=== PATIENT | male | born 1960 | race Caucasian/White ===

== ENCOUNTER 2018-03-10 18:04 | Emergency (ER) | payer BC, OTHER ==
[~2018-03-10] VITALS: Ht 177.8 cm; Wt 74.8 kg
--- NOTE | 2018-03-10 20:42 | ED Integumentary General ---
General Chief Complaint: Skin/Wound Problems Stated Complaint: ABSCESS Nursing Triage Note: PATIENT HERE FOR ABSCESS TO LEFT FLANK X2-3 WEEKS. HAS BEEN ON BACTRIM. Source: patient Exam Limitations: no limitations History of Present Illness Date Seen by Provider: Mar 10, 2018 Time Seen by Provider: 20:41 Initial Comments To ER with an abscess to the left flank about 2 weeks duration. He is currently on Bactrim. His has been attempting to drain this by squeezing it at home. He was seen at [facility] and referred to the emergency room. He denies fevers or chills. He does report a poor appetite however. No other systemic symptoms. Timing/Duration: constant, getting worse Severity: moderate Allergies and Home Medications Allergies Coded Allergies: No Known Drug Allergies (Unverified , 03/10/18) Home Medications Hydrocodone/Acetaminophen 1 Each Tablet, 1 EACH PO Q4H PRN for PAIN-MODERATE TO SEVERE Prescribed by: LUDA NARANJO on 03/10/182108 Sulfamethoxazole/Trimethoprim 1 Each Tablet, 1 EACH PO BID Prescribed by: LUDA NARANJO on 03/10/182108 Patient Home Medication List Home Medication List Reviewed: Yes Constitutional: see HPI; No chills, No fever, No malaise, No weakness EENTM: see HPI Respiratory: no symptoms reported Cardiovascular: no symptoms reported Genitourinary: no symptoms reported Musculoskeletal: no symptoms reported Skin: no symptoms reported Psychiatric/Neurological: No Symptoms Reported Past Dussybe-[id number]-[id number] Hx Patient Social History Recent Foreign Travel: No Contact w/Someone Who Travel: No Recent Infectious Disease Expo: No Physical Exam Vital Signs Vital Signs - First Documented 03/10/18 20:30 Temp 97.8 Pulse 101 Resp 20 B/P (MAP) 129/85 (100) Pulse Ox 99 O2 Delivery Room Air Capillary Refill : Less Than 3 Seconds General Appearance: WD/WN, no apparent distress HEENT: PERRL/EOMI, normal ENT inspection Neck: non-tender, full range of motion Respiratory: no respiratory distress, no accessory muscle use Neurologic/Psychiatric: alert, normal mood/affect Skin: normal color, warm/dry Skin Problem Character: abscess, other (large (15x7cm) well demarcated fluctuant abscess with multiple small pustules in the center on the left flank) Procedures/Interventions I&D : Blade Size: 11 Packing/Drain: 1/4 Pe[place] Drain Progress 2 mL of 1% lidocaine without epinephrine. Wound then incised with an 11 blade scalpel. A 1 cm incision was made. A tremendous amount of purulent material was expressed. Culture of this was collected and sent to lab. Cavity was irrigated with a total of 300 mL of Betadine/saline solution. Quarter-inch Peoa drain was sutured into place using one single simple interrupted suture size 3-0 Prolene. \ Progress/Results/Core Measures Results/Orders Lab Results Laboratory Tests Test 03/10/18 20:40 Range/Units White Blood Count 15.2 H 4.3-11.0 10^3/uL Red Blood Count 4.73 4.35-5.85 10^6/uL Hemoglobin 14.1 13.3-17.7 G/DL Hematocrit 42 40-54 % Mean Corpuscular Volume 88 80-99 FL Mean Corpuscular Hemoglobin 30 25-34 PG Mean Corpuscular Hemoglobin Concent 34 32-36 G/DL Red Cell Distribution Width 12.5 10.0-14.5 % Platelet Count 476 H 130-400 10^3/uL Mean Platelet Volume 10.1 7.4-10.4 FL Neutrophils (%) (Auto) 61 42-75 % Lymphocytes (%) (Auto) 23 12-44 % Monocytes (%) (Auto) 14 H 0-12 % Eosinophils (%) (Auto) 1 0-10 % Basophils (%) (Auto) 1 0-10 % Neutrophils # (Auto) 9.3 H 1.8-7.8 X 10^3 Lymphocytes # (Auto) 3.4 1.0-4.0 X 10^3 Monocytes # (Auto) 2.1 H 0.0-1.0 X 10^3 Eosinophils # (Auto) 0.2 0.0-0.3 10^3/uL Basophils # (Auto) 0.2 H 0.0-0.1 10^3/uL Neutrophils % (Manual) 56 % Lymphocytes % (Manual) 19 % Monocytes % (Manual) 15 % Eosinophils % (Manual) 2 % Basophils % (Manual) 0 % Metamyelocytes % 1 % Band Neutrophils 5 % Reactive Lymphocytes 2 % Blood Morphology Comment NORMAL Sodium Level 132 L 135-145 MMOL/L Potassium Level 4.6 3.6-5.0 MMOL/L Chloride Level 94 L 98-107 MMOL/L Carbon Dioxide Level 21 21-32 MMOL/L Anion Gap 17 H 5-14 MMOL/L Blood Urea Nitrogen 12 7-18 MG/DL Creatinine 0.87 0.60-1.30 MG/DL Estimat Glomerular Filtration Rate > 60 BUN/Creatinine Ratio 14 Glucose Level 323 H 70-105 MG/DL Calcium Level 9.8 8.5-10.1 MG/DL My Orders Orders - LUDA NARANJO DEBURRER Cbc With Automated Diff (03/10/18 20:34) Basic Metabolic Panel (03/10/18 20:34) Lidocaine 1% Inj 20 Ml (Xylocaine 1% Inj (03/10/18 20:45) Wound Culture (03/10/18 20:34) Manual Differential (03/10/18 20:40) Medications Given in ED Current Medications Medications Dose Ordered Sig/Td Route Start Time Stop Time Status Last Admin Dose Admin Lidocaine HCl 3 ml ONCE ONCE INJ 03/10/18 20:45 03/10/18 20:46 DC 03/10/18 20:46 3 ML Vital Signs/I&O 03/10/18 20:30 Temp 97.8 Pulse 101 Resp 20 B/P (MAP) 129/85 (100) Pulse Ox 99 O2 Delivery Room Air Blood Pressure Mean: 100 Departure Communication (Admissions) 5252-he only has one and a half days of Bactrim. We'll continue the Bactrim and I'll give him a prescription for more. Also some pain medications and I plan to see him back here in the emergency room in 48 hours for recheck since he does not have a primary care provider Impression Primary Impression: Abscess Disposition: 01 HOME, SELF-CARE Condition: Improved Departure-Patient Inst. Decision time for Depature: 21:08 Referrals: NO,LOCAL PHYSICIAN (PCP/Family) Primary Care Physician Patient Instructions: Abscess Incision and Drainage (DC) Add. Discharge Instructions: 1. Change the dressing as often as needed. You may shower. Leave the drain in place. Return to the emergency room on Saturday for recheck. Take antibiotics as directed. Pain medication as needed. Return to ER before Saturday for any fevers worsening redness or worsening pain. Expect quite a bit of drainage over the next few days. Additionally, your blood sugar is elevated indicating that you are likely diabetic. Follow-up with primary care All discharge instructions reviewed with patient and/or family. Voiced understanding. Scripts Hydrocodone/Acetaminophen ([place] 5-325 Tablet) 1 Each Tablet 1 EACH PO Q4H PRN for PAIN-MODERATE TO SEVERE, #10 TAB Prov: LUDA NARANJO APRN 03/10/18 Sulfamethoxazole/Trimethoprim (Bactrim Ds Tablet) 1 Each Tablet 1 EACH PO BID, #14 TAB Prov: LUDA NARANJO APRN 03/10/18 Work/School Note: Work Release Form Date Seen in the Emergency Department: Mar 10, 2018 Return to Work: Mar 12, 2018 LUDA NARANJO APRN Mar 10, 2018 20:42
[2018-03-10] MEDS ORDERED: LIDOCAINE 1% INJ 20 ML 20 ML VIAL INJ ONE (20:45)
[2018-03-10 20:50] LABS: BASOPHILS # (AUTO) 0.2 10^3/uL (0.0-0.1); BASOPHILS % (AUTO) 1 % (0-10); EOSINOPHILS # (AUTO) 0.2 10^3/uL (0.0-0.3); EOSINOPHILS % (AUTO) 1 % (0-10); HEMATOCRIT 42 % (40-54); HEMOGLOBIN 14.1 G/DL (13.3-17.7); LYMPHOCYTES # (AUTO) 3.4 X 10^3 (1.0-4.0); LYMPHOCYTES % (AUTO) 23 % (12-44); MEAN CORPUSCULAR HEMOGLOBIN 30 PG (25-34); MEAN CORPUSCULAR HGB CONC 34 G/DL (32-36); MEAN CORPUSCULAR VOLUME 88 FL (80-99); MEAN PLATELET VOLUME 10.1 FL (7.4-10.4); MONOCYTES # (AUTO) 2.1 X 10^3 (0.0-1.0); MONOCYTES % (AUTO) 14 % (0-12); NEUTROPHILS # (AUTO) 9.3 X 10^3 (1.8-7.8); NEUTROPHILS % (AUTO) 61 % (42-75); PLATELET COUNT 476 10^3/uL (130-400); RED BLOOD COUNT 4.73 10^6/uL (4.35-5.85); RED CELL DISTRIBUTION WIDTH 12.5 % (10.0-14.5); WHITE BLOOD COUNT 15.2 10^3/uL (4.3-11.0)
[2018-03-10 21:05] LABS: BUN/CREATININE RATIO 14; CALCIUM 9.8 MG/DL (8.5-10.1); CARBON DIOXIDE 21 MMOL/L (21-32); CHLORIDE 94 MMOL/L (98-107); CREATININE SERUM 0.87 MG/DL (0.60-1.30); GFR ESTIMATED > 60; GLUCOSE 323 MG/DL (70-105); POTASSIUM 4.6 MMOL/L (3.6-5.0); SODIUM 132 MMOL/L (135-145)
[2018-03-10 21:07] LABS: BAND NEUTROPHILS 5 %; BASOPHILS % (MANUAL) 0 %; EOSINOPHILS % (MANUAL) 2 %; LYMPHOCYTES % (MANUAL) 19 %; METAMYELOCYTES % 1 %; MONOCYTES % (MANUAL) 15 %; NEUTROPHILS % (MANUAL) 56 %; RBC MORPH NORMAL; REACTIVE LYMPHOCYTES 2 %
[2018-03-10] MEDS ORDERED: SULF1TAB35 PO (21:09)
[2018-03-10] MEDS ORDERED: HYDR-757 PO (21:09)
[2018-03-10] MEDS ORDERED: RX-HYDROCODONE/APAP 5/325 MG #4 TAB PK PO PRN (21:15)
[2018-03-10 21:24] VITALS: BP 129/85
[2018-03-14] MEDS ORDERED: INSU100I14 SQ (11:08)
[2018-03-14] MEDS ORDERED: CEPH-507 PO (11:08)
[2018-03-14] MEDS ORDERED: INSU100I29 SQ (11:08)
== END 2018-03-10 21:28 | disposition home or self-care (01) ==
LOC: ER 18:05
DX: L02.211 Cutaneous abscess of abdominal wall (principal)
CPT/HCPCS: 36415; 80048; 85007; 85027; 87070; 87077; 87186; 87205; 99283